=== PATIENT | female | born 1965 | race Caucasian/White ===

== ENCOUNTER 2023-06-11 17:19 | Emergency (ER) | payer OTHER, SELFPAY ==
[2023-06-11 17:23] VITALS: BP 190/98
--- NOTE | 2023-06-11 18:31 | ED.GENMED ---
History of Present Illness
General
Chief Complaint: Dizziness
Time Seen by Provider: 06/11/23 18:31
Travel History
Have you had any contact with someone who has COVID-19?: No
Do you have any symptoms of coronavirus? Fever > 100 degrees, chills, cough, shortness of breath, sore throat, loss of taste or smell, muscle aches, or headache?: No
History of Present Illness
History of Present Illness:
HPI: The patient presents with vertiginous symptoms associate with nausea. This started a few hours ago. She has no associated headache however she does have a history of migraines and did have an aura earlier. She has not had symptoms like this
in the past. She states that her symptoms dramatically worsen when she lays down flat
EXAM: GENERAL: Well appearing in no distress
HEENT: Moist oral mucosa
CARDIOVASCULAR: No murmurs, normal heart rate, regular rhythm, No chest wall tenderness
PULMONARY: No respiratory distress, breath sounds are clear and equal
ABDOMEN: Soft with no peritoneal signs, no tenderness
NEUROLOGIC: Excellent strength all extremities, no coordination deficits, normal finger-nose testing, no nystagmus
PSYCHIATRIC: Appropriate mental status, normal insight and judgement
EXTREMITIES: Nontender, no edema, moves all extremities equally
SKIN: No rash, no lesions
TIME OF INITIAL ENCOUNTER: 7 PM
NUMBER AND COMPLEXITY OF PROBLEMS ADDRESSED AT THE ENCOUNTER
� Chronic conditions affecting care: Anemia, anxiety
� Acute Exacerbation and/or Progression of Chronic Illness: This is an acute problem
� Differential Diagnosis includes: Positional vertigo, highly doubt WHITE KID BUFFER process, worsening anemia, labyrinthitis
AMOUNT AND/OR COMPLEXITY OF DATA TO BE REVIEWED AND ANALYZED
� I performed an independent evaluation of and my interpretation is:
EKG: Sinus 71, left axis deviation, no acute ST abnormality
CT:
X-rays:
Laboratory Studies: White count slightly high at 11.4, hemoglobin 13.9, chemistries unremarkable
Other:
� Review of other/old records: I reviewed records, the patient had a colonoscopy in 2022
� Clinical information was obtained by an independent historian: Spoke to mother at bedside
� Prescriptions/Medications Considered but not given:
� Further testing considered but not performed: I offered and considered CT imaging of the brain however she prefers to hold off at this time.
RISK OF COMPLICATIONS AND/OR MORBIDITY OR MORTALITY OF PATIENT MANAGEMENT
� Social determinants of health affecting care: Lives at home
� Discussion with other providers:
� Escalation of care including admission/observation vs risk of discharge considered: Strongly suspect BPPV, symptoms worsen when she lays down flat. She has a nonfocal neurologic examination. Although she has no headache, she
did have an aura with history of migraine, will try Reglan (to also help with the nausea) and Benadryl but also try a low-dose of Valium as well for symptomatic control. On reassessment at 9:45 PM, she is significantly improved. She has a nonfocal
neurologic reexamination. Strongly suspect positional vertigo�her symptoms worsened when she laid down flat. Will give prescription for Zofran as well as Valium. I also suggest that she try Benadryl. I have also given her contact information and
prescription for vestibular physical therapy.
Past History
Past History
ED Past Medical History: None
ED Past Surgical History: None
Phy Exam
Physical Exam
Physical Exam:
See HPI
Course
Orders/Labs/Results
Orders:
Orders
06/11/23 17:24
EKG [Electrocardiogram (*1)] Urgent
Reason for Study: Vertigo / Dizzy
EKG- Treatment ONCE
06/11/23 18:44
0.9% Sodium Chloride 1000 ml [Nss] 1,000 ml IV BOLUS
Diphenhydramine [Benadryl] 25 mg IV NOW STA
Metoclopramide [Reglan] 10 mg IV NOW STA
diazePAM [Valium Injection] 2 mg IV NOW STA
06/11/23 19:29
Basic Metabolic Panel Urgent
Complete Blood Count/With Diff Urgent
Abnormal Lab Results
06/11/23
19:29
WBC 11.4 H 10^3/uL
(4.8-10.8)
Abs Immat Gran (auto) 0.1 H 10^3/uL
(0-0.05)
Absolute Neuts (auto) 8.9 H 10^3/uL
(1.4-6.5)
Neutrophils % 78.2 H %
(42.2-75.2)
Lymphocytes % 16.4 L %
(20.5-51.1)
BUN 26 H mg/dl
(7-17)
Glucose 127 H mg/dl
(70-99)
06/11/23 19:29
06/11/23 19:29
Vital Signs
Initial and Last Documented VS:
Initial Vital Signs
Temp Pulse Resp BP Pulse Ox
98.9 F 73 17 190/98 99
06/11/23 17:23 06/11/23 17:23 06/11/23 17:23 06/11/23 17:23 06/11/23 17:23
Last Documented Vital Signs
Temp Pulse Resp BP Pulse Ox
98.9 F 73 17 111/57 95
06/11/23 17:23 06/11/23 17:23 06/11/23 17:23 06/11/23 21:00 06/11/23 21:15
*Critical Care Note
Total Time (30-74mins, 75-104mins- exclusive of procedures): Not Applicable
ED Attending Note
-
Portions of this chart may have been created with voice recognition software.� Occasional wrong word or��sound alike� substitutions may have occurred due to the inherent limitations of voice recognition software.
Discharge Plan
Departure
Patient Disposition: Home (Routine Discharge)
Date of Disposition: 06/11/23
Time of Disposition: 21:52
Patient with high blood pressure during this ER visit?: Yes
Discharge Problem:
Positional vertigo
Instructions: Vertigo (a type of dizziness)
Prescriptions:
New
diazepam [Valium] 2 mg tablet
2 - 4 mg PO BID PRN (Reason: dizziness) Qty: 14 0RF
ondansetron HCl 4 mg tablet
4 mg PO Q8H PRN (Reason: nausea and vomiting) Qty: 10 0RF
Referrals:
Benita White MD [Family Provider] -
Activity Restrictions/Additional Instructions:
Your symptoms appear to be related to 'benign paroxysmal positional vertigo'. This typically last for about 3 to 4 weeks and spontaneously improved. However I have given you a prescription for vestibular physical therapy�you could call
[phone] to set this up.
Interventions
Interventions:
*Risk Screen - Suicide Last Done: 06/11/23 19:03
*General Assessment Last Done: 06/11/23 19:03
*ED COVID-19 Vaccine History Last Done: 06/11/23 19:03
Discharge Date and Time
Print Language: SERBIAN
[2023-06-11 19:02] VITALS: BMI 41.6
[2023-06-11] MEDS: VALIUM INJECTION 2 MG IV (19:17)
[2023-06-11] MEDS: BENADRYL 25 MG IV (19:17)
[2023-06-11] MEDS: REGLAN 10 MG IV (19:17)
[2023-06-11] MEDS: NSS 1000 IV (19:18)
[2023-06-11 19:29] VITALS: BP 120/61
[2023-06-11 19:39] LABS: % Basophils 0.4 % (0-2); % Eosinophils 1.2 % (0-6); % Immature Granulocytes 0.4 % (0-0.5); % Lymphocytes 16.4 % (20.5-51.1); % Monocytes 3.4 % (1.7-9.3); % Neutrophils 78.2 % (42.2-75.2); Absolute Basophils 0.1 10^3/uL (0-0.2); Absolute Eosinophils 0.1 10^3/uL (0-0.7); Absolute Immature Granulocytes 0.1 10^3/uL (0-0.05); Absolute Lymphocytes 1.9 10^3/uL (1.2-3.4); Absolute Monocytes 0.4 10^3/uL (0.1-0.6); Absolute Neutrophils 8.9 10^3/uL (1.4-6.5); Hematocrit 40.4 % (37.0-47.0); Hemoglobin 13.9 g/dL (12.0-16.0); Mean Corp Hgb Conc. 34.4 g/dL (33.0-37.0); Mean Corpuscular Hgb 29.5 pg (27.0-31.0); Mean Corpuscular Volume 85.8 fL (81.0-99.0); Mean Platelet Volume 9.7 fL (7.4-10.4); Nucleated Red Blood Cells % 0 %; Platelet Count 266 10^3/uL (130-400); Red Blood Cell Count 4.71 10^6/uL (4.20-5.40); Red Cell Dist. Width 13.6 % (11.5-14.5); White Blood Cell Count 11.4 10^3/uL (4.8-10.8)
[2023-06-11 19:49] LABS: Blood Urea Nitrogen 26 mg/dl (7-17); Calcium 9.7 mg/dl (8.4-10.2); Carbon Dioxide 24 mmol/L (22-30); Chloride 105 mmol/L (98-107); Estimated Creatinine Clearance > 125 ml/min; Glucose 127 mg/dl (70-99); Potassium 4.4 mmol/L (3.5-5.1); Sodium 135 mmol/L (135-145); eGFR > 60.00
[2023-06-11 20:00] VITALS: BP 89/41
[2023-06-11 21:00] VITALS: BP 111/57
== END 2023-06-11 23:00 | disposition home or self-care (01) ==
LOC: EMR 17:19
PROVIDERS: EMERGENCY PHYSICIAN Emergency Medicine; FAMILY PHYSICIAN Family Medicine
DX: H81.10 Benign paroxysmal vertigo, unspecified ear (principal); R11.0 Nausea; G43.109 Migraine with aura, not intractable, without status migrainosus; R03.0 Elevated blood-pressure reading, without diagnosis of hypertension
CPT/HCPCS: 99284; 96374; 96375 ×2; 96361; 80048; 85025; 93005

== ENCOUNTER 2024-10-09 16:15 | Emergency (ER) | payer OTHER, SELFPAY ==
[2024-10-09 16:16] VITALS: BP 148/98
[2024-10-09 16:47] LABS: Hematocrit 41.4 % (37.0-47.0); Hemoglobin 13.6 g/dL (12.0-16.0); Mean Corp Hgb Conc. 32.9 g/dL (33.0-37.0); Mean Corpuscular Volume 87.9 fL (81.0-99.0); Nucleated Red Blood Cells % 0 %; Platelet Count 200 10^3/uL (130-400); Red Cell Dist. Width 13.4 % (11.5-14.5)
[2024-10-09 17:08] LABS: ALT (SGPT) 46 U/L (0-35); AST (SGOT) 29 U/L (14-36); Albumin 4.2 g/dl (3.5-5.0); Alkaline Phosphatase 72 U/L (38-126); Blood Urea Nitrogen 21 mg/dl (7-17); Calcium 9.2 mg/dl (8.4-10.2); Carbon Dioxide 25 mmol/L (22-30); Chloride 106 mmol/L (98-107); Glucose 99 mg/dl (70-99); Potassium 4.1 mmol/L (3.5-5.1); Sodium 137 mmol/L (135-145); Total Protein 7.1 g/dl (6.3-8.2); eGFR > 60.00
[2024-10-09 17:11] LABS: Troponin I < 0.012 ng/ml
[2024-10-09 18:00] VITALS: BP 138/90
[2024-10-09 19:01] VITALS: BMI 40.8
[2024-10-09 19:02] VITALS: BP 139/84
[2024-10-09 20:22] LABS: D-Dimer 1.30 ug/mlFEU (0.00-0.50)
[2024-10-09] MEDS: NSS 1000 IV (21:34)
[2024-10-09 21:35] VITALS: BP 147/72
--- NOTE | 2024-10-09 21:35 | ED.GENMED ---
History of Present Illness
General
Chief Complaint: Heart Rate Problem
Source: patient
Exam Limitations: none
Time Seen by Provider: 10/09/24 18:46
Nursing documentation reviewed up to this point in time: agreed with
History of Present Illness
History of Present Illness:
Patient is a 59-year-old female who presents the emergency department for evaluation of elevated heart rate. Patient states that earlier today she was sitting at home when she felt that her heart was racing. Her Apple Watch showed that her heart
rate was in the 110s and got as high as 130. This all occurred while she was sitting down.
She denies any associated chest pain, shortness of breath, lightheadedness or dizziness. She denies any pain or swelling in her lower legs. She denies any cough, fever, or hemoptysis.
Patient does note that she had a scratchy throat yesterday /today however had a negative COVID test at home.
Of note�patient did return from [place] on Monday via airplane.
Patient has no personal or family history of blood clots or clotting disorders. She is on no exogenous hormone use. No recent surgeries.
Past History
Past History
ED Past Medical History: None
ED Past Surgical History: None
Review of Systems
Review of Systems
Allergies reviewed?: Yes
All Other Systems: ROS reviewed and negative except as documented in HPI and ROS
Phy Exam
Physical Exam
Physical Exam:
Vitals: Hypertensive, tachycardic on arrival although improved by my assessment. Afebrile
General: Patient is well appearing, no acute distress
Skin: Warm and dry, no rashes or lesions
Head: Normocephalic, atraumatic
Eyes: Sclera nonicteric.
Throat: Protecting airway
Neck: Normal ROM, no cervical spine tenderness, no meningismus. No JVD
Cardiac: Regular rate and rhythm, no murmurs. 2+ palpable radial pulses bilaterally
Pulm: Normal respiratory effort, no wheezes, rales, rhonchi heard on exam
Abdomen: Abdomen soft and nontender.
Extremities: No evidence of cyanosis or edema. No tenderness of calves bilaterally with negative Homans' sign.
Neuro: AAOx3. Grossly intact.
Psychiatric: Normal affect.
Course
Orders/Labs/Results
Orders:
Orders
10/09/24 16:16
ECG [Electrocardiogram (*1)] Urgent
Reason for Study: Tachycardia
EKG- Treatment ONCE
10/09/24 16:40
CBC/With Diff [Complete Blood Count/With Diff] Urgent
CMP [Comprehensive Metabolic Panel] Urgent
TSH Reflex To Free T4 Urgent
Comment: ADD ON
Troponin I Urgent
10/09/24 19:18
Add On- LAB Urgent
Tests Added?: TSH w/ reflex to T4
CR Chest - 2 Views Urgent
Comment:
Reason For Exam: cough
10/09/24 19:53
D-Dimer Urgent
10/09/24 20:58
CT Chest PE Study Urgent
Comment:
Reason For Exam: Tachycardia, elevated dimer
0.9% Sodium Chloride 1000 ml [Nss] 1,000 ml IV BOLUS
10/10/24 00:49
Ketorolac [Toradol] 30 mg .ROUTE .STK-MED ONE
Abnormal Lab Results
10/09/24 10/09/24
16:40 19:53
MCHC 32.9 L g/dL
(33.0-37.0)
Absolute Lymphs (auto) 0.8 L 10^3/uL
(1.2-3.4)
Lymphocytes % 13.4 L %
(20.5-51.1)
Monocytes % 9.6 H %
(1.7-9.3)
D-Dimer 1.30 H ug/mlFEU
(0.00-0.50)
BUN 21 H mg/dl
(7-17)
ALT 46 H U/L
(0-35)
10/09/24 16:40
10/09/24 16:40
Vital Signs
Initial and Last Documented VS:
Initial Vital Signs
Temp Pulse Resp BP Pulse Ox
98.2 F 110 14 148/98 99
10/09/24 16:16 10/09/24 16:16 10/09/24 16:16 10/09/24 16:16 10/09/24 16:16
Last Documented Vital Signs
Temp Pulse Resp BP Pulse Ox
98.4 F 97 20 147/72 98
10/09/24 19:02 10/09/24 21:35 10/09/24 21:35 10/09/24 21:35 10/09/24 23:13
MDM/Problems Addressed
Differential Diagnosis Includes:
Not limited to: Viral illness, acute dehydration, hyperthyroid, cardiac arrhythmia, doubt pulmonary embolism, etc.
MDM/Problems Addressed:
59-year-old female presenting with resting tachycardia at home. No associated chest pain, shortness of breath, lightheadedness. No lower extremity swelling, or syncopal episodes. Patient did recently returned from trip to [place]. No
personal/family history of blood clots or other PE risk factors.
Patient tachycardic on arrival, heart rate in 90s by my assessment. Her vital signs are otherwise normal. Physical exam as above.
Differential broad and listed above. She appears very well and comfortable. Basic labs were sent prior to my evaluation without clinically significant abnormalities. Troponin undetectable. Given resting tachycardia � will add on TSH. Will send
d-dimer with history of recent travel, however low suspicion for PE. Will keep patient on monitor to evaluate for arrhythmia. Will reassess.
Update: TSH within normal limits. D-dimer elevated to 1.3. Discussed with patient � will proceed to CTA chest. She reamins hemodynamically stable and heart rate at this point is in upper 80s.
Update: CTA chest without evidence of central PE. Lung nodules noted which patient was made aware of w/ instructions to follow up with PCP. Patient�s heart rate has normalized and there has been no evidence of arrhythmia while on monitor in ED.
Patient feels well and is asymptomatic.
Unknown exact etiology of symptoms today. Possible impending viral illness or dehydration. She did receive a liter of IV fluids. Given negative work up in ED and stable vital signs - feel appropriate for discharge home with primary care follow-up.
Strict return precautions discussed. Patient comfortable with plan.
Chronic conditions affecting care:
N/A
Acute Exacerbation and/or Progression of Chronic Illness:
N/A
*Radiology
Radiology exam reviewed: preliminary read by ED provider (Chest x-ray reviewed by me-no acute abnormality) and radiology read reviewed
*Pulse Oximetry
SaO2: 97
Oxygen Mode of Delivery: Room air
Patient hypoxic: no
*EKG
Interpreted by ED Provider?: Yes
EKG Intrepretation Date: 10/09/24
Interpretation: abnormal
Comparison EKG: no changes
Heart Rate: 103
Rate: tachycardiac
Rhythm: sinus
Interval: normal QT interval
QRS Pattern: low voltage
Ischemia: non-specific ST changes
*Supervisor Roving Department Interpretation
Rate: normal
Interpretation: normal
Heart Rate: 86
Rhythm: sinus
*Critical Care Note
Total Time (30-74mins, 75-104mins- exclusive of procedures): Not Applicable
ED Attending Note
-
Portions of this chart may have been created with voice recognition software.� Occasional wrong word or��sound alike� substitutions may have occurred due to the inherent limitations of voice recognition software.
Discharge Plan
Departure
Patient Disposition: Home (Routine Discharge)
Date of Disposition: 10/09/24
Time of Disposition: 22:55
Patient with high blood pressure during this ER visit?: Yes
Discharge Problem:
Tachycardia
Instructions: Tachycardia, Palpitations (DC)
Prescriptions:
No Action
ondansetron HCl 4 mg tablet
4 mg PO Q8H PRN (Reason: nausea and vomiting) Qty: 10 0RF
Zepbound 10 mg/0.5 mL Pen Injector
10 mg SC WEEKLY
Referrals:
Benita White MD [Family Provider, [facility]] - Follow up in 5-7 days
Activity Restrictions/Additional Instructions:
RETURN TO THE EMERGENCY DEPARTMENT WITH ANY CHEST PAIN, SHORTNESS OF BREATH/DIFFICULTY BREATHING, PERSISTENTLY ELEVATED HEART RATE, LIGHTHEADEDNESS, DIZZINESS, OR EPISODES OF FAINTING, OR ANY OTHER CONCERNS
- As discussed�your lab work showed no acute abnormalities. Your thyroid level was normal. The CT of your chest showed no evidence of pulmonary embolism however did note lung nodules�please follow-up with your primary care to ensure this is
appropriately.
- It is important to stay well-hydrated. Continue to take your medications as prescribed.
- Follow-up with your primary care provider for further evaluation/management and to ensure that your symptoms are improving
Monitor your symptoms closely and return to the emergency department with any acute worsening/new symptoms or any other concerns
Interventions
Interventions:
*Risk Screen - Suicide Last Done: 10/09/24 16:16
*General Assessment Last Done: 10/09/24 16:16
*Neglect/Abuse Screening Last Done: 10/09/24 16:16
*ED- Fall Risk Assessment Last Done: 10/09/24 19:02
*ED COVID-19 Vaccine History Last Done: 10/09/24 16:16
*Nursing Disposition Last Done: 10/09/24 23:13
ED- Cardiac Assessment Last Done: 10/09/24 19:02
ED- Pulmonary Assessment Last Done: 10/09/24 19:02
Discharge Date and Time
Discharge Date/Time: 10/09/24 23:14
Print Language: MAURITANIAN
--- NOTE | 2024-10-28 10:06 | OID.L.PAT ---
Pulmonary Nodule Pat Letter
- -
10/28/24
WILD SMITH
[address]
[place] [id number]
Sandro ROME,
A pulmonary nodule was seen on an imaging study done by [facility]. This was reviewed by the [facility] Pulmonary Nodule Advisory Board and the following recommendation was made:
Recommendation: Follow up CT Chest in 3-4 months.
If you have any questions, please do not hesitate to contact your primary care physician. If you are in need of a Physician, you can go to [email or web address] and click on 'Find a Provider'. Type 'Family Medicine' in the search.
Oncology Nurse Navigator
[facility]
[phone]
--- NOTE | 2024-10-28 10:07 | OID.L.REC ---
Pulmonary Nodule Follow Up
- Recommendation
10/28/24
Pulmonary Nodule Review Recommendations
Your patient, WILD SMITH, had a pulmonary nodule seen on an imaging study done on 10/09/2024 in the [facility] Emergency Department.
This was reviewed by the [facility] Pulmonary Nodule Advisory Board and the following recommendation was made:
Recommendation: Follow up CT Chest in 3-4 months.
If you have any questions, please do not hesitate to contact us.
Sincerely,
Oncology Nurse Navigator
[facility]
[phone]
== END 2024-10-09 23:14 | disposition home or self-care (01) ==
LOC: EMR 16:15
PROVIDERS: Physician Assistant; EMERGENCY PHYSICIAN Emergency Medicine; FAMILY PHYSICIAN Family Medicine
DX: R00.0 Tachycardia, unspecified (principal); R91.8 Other nonspecific abnormal finding of lung field
CPT/HCPCS: 99284; 71046; 71275; 80053; 84443; 84484; 85025; 85379; 93005; Q9967

== ENCOUNTER → 2024-11-07 10:26 | Outpatient (REF) | payer OTHER, SELFPAY | LOC: HWWDC 10:26 | PROVIDERS: ATTENDING PHYSICIAN Obstetrics & Gynecology Gynecology; FAMILY PHYSICIAN Family Medicine | DX: Z12.31 Encounter for screening mammogram for malignant neoplasm of breast (principal) | CPT/HCPCS: 77063; 77067 ==

== ENCOUNTER → 2025-01-13 13:23 | Outpatient (REF) | payer OTHER, SELFPAY | LOC: RAD 13:23 | PROVIDERS: ATTENDING PHYSICIAN Family Medicine | DX: R91.1 Solitary pulmonary nodule (principal) | CPT/HCPCS: 71260; Q9967 ==